=== PATIENT | male | born 1980 | race Caucasian/White ===

== ENCOUNTER 2021-09-16 23:04 | Emergency (ER) | payer SELFPAY ==
--- OUTSIDE RECORDS SUMMARY | 2021-09-16 23:07 | XMS REPORT | Continuity of Care Document ---
:1980 Author Organization [facility] t Address [address] [place] [address] Care Team Providers Name Role Phone Asked, Pcp Primary Care Physician Unavailable Cathi FRIAS Attending Clinician CATHI Attending Clinician Unavailable Avery FRIAS Attending Clinician Robin FRIAS Attending Clinician Payers Payer Name Policy Type Policy Number Effective Date Expiration Date S ource Problems Condition Condition Condition Status Onset Resolution Last Treating Co mments Source Name Details Category Date Date Treatment Clinician Date No known No known Disease Unive rs active active ity of problems problems [facility] Allergies, Adverse Reactions, Alerts Allergy Allergy Status Severity Reaction(s) Onset Inactive Treating Comm ents Source Name Type Date Date Clinician Penicill DA Active SV 2017[facility]06 [facility] [place] Penicill Propensi Active Shortness Of 2017-06 Methodi ins ty to Breath 0-14 st adverse 00:00: Hospita reaction 00 l s to drug PENICILL Drug Active Anaphylaxis Uni vers INS Class 1-16 ity of 00:00: [place] 00 Medical [place] Penicill Propensi Active Anaphylaxis U nivers ins ty to 1-16 ity of adverse 00:00: [place] reaction 00 Medical s Branch Penicill DA Active SV [facility] Social History Social Habit Start Date Stop Date Quantity Comments Source Exposure to Not sure [facility] SARS-CoV-2 [place] [facility] (event) Branch History of Snuff User Druze tobacco use Hospital History SDOH [facility] Alcohol Frequency Hospita l History SDOH [facility] Alcohol Std Hospital Drinks History SDOH [facility] Alcohol Binge Hospital Alcohol intake 2019-08-16 2019-08-16 Current drinker [facility] dist 00:00:00 00:00:00 of alcohol Hospital (finding) Alcohol Comment 2019-08-16 2019-08-16 sparingly Druze 00:00:00 00:00:00 Hospital Tobacco use and 2018-03-23 2018-03-23 User of smokeless [facility] exposure 00:00:00 00:00:00 tobacco Hospital Sex Assigned At [birth year] Dru[facility] 00:00:00 00:00:00 Hospital Smoking Status Start Date Stop Date Source Never smoker [facility] Branch Ex-smoker 2018-03-23 00:00:00 2018-03-23 [facility]00:[facility] Medications Ordered Filled Start Stop Current Ordering Indication Dosage Frequency Signature Comments Components Source Medication Medication Date Date Medication? Clinician (SIG) Name Name ibuprofen 2020-0 2020- No 800mg 800 mg, Uni vers (IBU) 12-28 Oral, ity of tablet 800 04:45: 04:20 ONCE, 1 Levon as mg 00 :00 dose, [facility] Medical 12/27/20 at Branch 2345, KAYE HYDROcodone 2020-0 2020- No 1{tbl} 1 tablet, Univers -acetaminop 12-28 Oral, ity of hen (NORCO 04:45: 04:20 ONCE, 1 Levon as 5) 5-325 mg 00 :00 dose, [facility] Med ical tablet 1 12/27/20 at [facility] tablet 2345, KAYE ibuprofen 2020-0 Yes [id number] 800mg Take 1 Univers 800 mg 7-20 tablet by ity of tablet 00:00: mouth [place] 00 every 8 Medical (eight) Branch hours as needed for Pain (scale 4-6). benzonatate 2020- Yes [id number] 100mg Take 1 Univers 100 mg 7-20 capsule by ity of capsule 00:00: mouth 3 [place] 00 (three) Medical times Branch daily as needed for Cough. levoFLOXaci 2020- No [id number] 750mg Take 1 Univers n 7-20 07-26 tablet by ity of (LEVAQUIN) 00:00: 04:59 mouth [place] 750 mg 00 :00 every 24 Medical tablet (twenty-fo Branch ur) hours for 5 days. No known No No known Metho di medications 3-[address] 19:43: s Hospita 35 l azithromyci 2018-06 Yes [id number] 250mg Take 1 Univers n 1-03 tablet by ity of (ZITHROMAX 00:00: mouth [place] Z-KENIA) 250 00 daily. Medical mg tablet Take 500 Branch mg day 1, then 250 mg days 2 to 5. azithromyci 2018-06- No [id number] 250mg Take 1 Univers n 1-03 -20 tablet by ity of (ZITHROMAX 00:00: 00:00 mouth [place] Z-KENIA) 250 00 :00 daily. Medical mg tablet Take 500 Branch mg day 1, then 250 mg days 2 to 5. erythromyci Yes .5[in_u Place 0.5 Univers n 5 mg/gram 1-16 s] Inches in ity of (0.5 %) 00:00: both eyes [place] ophthalmic 00 4 (four) Medic al ointment times Branch daily. traMADOL 50 Yes 50mg Take 1 Univ ers mg tablet 1-16 tablet by ity o f 00:00: mouth [place] 00 every 6 Medical (six) Branch hours as needed for Pain (scale 4-6). erythromyci 2020- No .5[in_u Place 0.5 Univers n 5 mg/gram 1-16 07-20 s] Inches in it y of (0.5 %) 00:00: 00:00 [place] ophthalmic 00 :00 4 (four) Medic al ointment times Branch daily. traMADOL 50 2020- No 50mg Take 1 Uni vers mg tablet 1-16 07-20 tablet by ity of 00:00: 00:00 mouth [place] 00 :00 every 6 Medical (six) Branch hours as needed for Pain (scale 4-6). Immunizations Ordered Immunization Filled Immunization Date Status Commen ts Source Name Name Tdap 2018-12-24 Completed [facility] 00:00:00 Hospital Vital Signs Vital Name Observation Time Observation Value Comments Source Systolic blood 2020-12-28 06:05:00 155 mm[Hg] Univer sity of pressure [facility] Diastolic blood 2020-12-28 06:05:00 93 mm[Hg] Unive rsity of [facility] Heart rate 2020-12-28 06:05:00 89 /min [facility] Body temperature 2020-12-28 06:05:[address] [facility] Respiratory rate 2020-12-28 06:05:00 18 /min [facility] Oxygen saturation in 2020-12-28 06:05:00 96 /min [facility] Arterial blood by [facility] Pulse oximetry Branch Body height 2020-12-28 04:06:00 172.7 cm [facility] Body weight 2020-12-28 03:36:00 140.615 kg [facility] BMI 2020-12-28 03:36:00 47.14 kg/m2 [facility] Systolic blood 2020-11-16 01:49:00 170 mm[Hg] Method [facility] pressure Diastolic blood 2020-11-16 01:49:00 102 mm[Hg] [facility] pressure Heart rate 2020-11-16 01:49:00 96 /min [facility] Body temperature 2020-11-16 01:49:00 36.39 [place] [facility] Respiratory rate 2020-11-16 01:49:00 19 /min [facility] Body height 2020-11-16 01:49:00 180.3 cm [facility] Body weight 2020-11-16 01:49:00 145.151 kg [facility] BMI 2020-11-16 01:49:00 44.63 kg/m2 [facility] Oxygen saturation in 2020-11-16 01:49:00 96 /min [facility] Arterial blood by Pulse oximetry Procedures Procedure Date / Time Performing Clinician Source Performed COVID-19 (ID NOW RAPID 2020-12-28 04:20:00 Arnaldo Winkler [facility] CT LUMBAR SPINE WO 2020-12-28 04:00:05 Arnaldo Winkler [facility] Branch XR CHEST 2 VW 2020-12-28 03:53:35 Arnaldo Winkler [facility] CONSENT/REFUSAL FOR 2020-12-28 02:16:39 Doctor Unassigned, No Un [facility] DIAGNOSIS AND TREATMENT Name Medical Branch CT ABDOMEN PELVIS WO 2020-11-16 03:25:55 Iain Varela [facility] CONTRAST HC COMPLETE BLD COUNT 2020-11-16 02:43:00 [facility] W/AUTO DIFF PROTHROMBIN TIME WITH 2020-11-16 02:43:00 Avery [facility] INR COMPREHENSIVE METABOLIC 2020-11-16 02:43:00 Iain Varela [facility] PANEL LIPASE LEVEL 2020-11-16 02:43:00 Iain Varela spital ESTIMATED GFR 2020-11-16 02:43:00 Iain Varela spital Plan of Care Planned Activity Planned Date Details Comments Source Future Scheduled 2021-04-12 COVID-19 VACCINE [facility] Test 19:44:36 (1) [code = COVID-19 VACCINE (1)] Future Scheduled 2021-04-12 Hepatitis C [facility] ospital Test 19:44:36 screening (procedure) [code = 820778993] Future Scheduled 2021-04-12 INFLUENZA VACCINE [facility] Test 19:44:36 [code = INFLUENZA VACCINE] Encounters Start End Encounter Admission Attending Care Care Encounter Source Date/Time Date/Time Type Type Clinicians Facility Department ID 2020-12-27 2020-12-28 Emergency [facility] [id number] Univers 23:16:00 01:08:00 Arnaldo [facility] [id number] it y of Clear [id number] Cha schmidt Yu [phone] [address] ([facility]) 2020-12-27 2020-12-27 Emergency X [facility] ERT [id number] Univers 23:16:00 23:16:00 ARNALDO [facility] 2020-11-152020-11-15 Emergency Avery, 1.2.840.1 [id number] Methodi 20:51:00 23:15:[address] 3.430.2.7 Hospit a .3.694710 l .8 2020-11-15 2020-11-15 Travel 1.2.840.1 [id number] Methodi 00:00:00 00:00:[address] 3.430.2.7 0.2.7.3.698 Ho spita .3.333631 084.8 l .8 2019-09-29 2019-09-29 [facility] [id number] Univers 09:01:41 09:21:41 ne Visit [facility] [id number] [facility] 4.2.7.2.686 [place] [facility] [phone] [place] dical nal 059 [facility] Results Test Description Test Time Test Comments Results Result Comments Source COVID-19 (ID NOW RAPID TESTING) 2020-12-28 04:36:39 Test Item Value Reference Range Interpretation Comme nts SARS-CoV-2 Rapid ID NOW (test code Positive Not Detected A = 06643-9) DOMINIC (test code = DOMINIC) ID NOW COVID-19 Assay is an isothermal nucleic acid amplification test intended for the qualitative detection of nucleic acid from SARS-CoV-2 viral RNA in nasopharyngeal (DIETETICS DIRECTOR) specimens. It is used under Emergency Use Authorization (EUA) by FDA. The limit of detection (LOD) of the assay is 125 Genome Equivalents/mL. A positive result is indicative of the presence of SARS-CoV-2 RNA. ?Clinical correlation with patient history and other diagnostic information is necessary to determine patient infection status. A negative (Not Detected) result does not preclude SARS-CoV-2 infection. In patients with clinical symptoms and other tests that are consistent with SARS-CoV-2 infection, negative results should be treated as presumptive negative and a new specimen should be tested with alternative PCR molecular test. Invalid: Please collect a new specimen for repeat patient testing if clinically indicated. Lab Interpretation (test code = Abnormal 64136-1) [facility] [id number] 04:26:56 No acute osseous abnormality of the lumbar spine. Suboptimal evaluation of the soft tissues due to body habitus. There isapparent moderate central canal stenosis and bilateral mild neuralforaminal stenosis at L3-L4. Patchy groundglass attenuation in the visualized left lower lobe,concerning for pneumo martha versus aspiration. RL: 460 AFC: [id number] Ordering physician: ARNALDO WINKLER INDICATION: Low back pain COMPARISON: None TECHNIQUE: Axial images of the lumbar spine were performed without theadministration of intravenous contrast material. Images were reformatted inthe coronal and sagittal plane. CT scan was performed accordingto ALARA(as low as reasonably achievable) policy. FINDINGS: There is patchy groundglass attenuation in the left lower lobe.The lumbar spine is in normal anatomic alignment. There is preservation ofnormal vertebral body height, without evidence for acute fracture.Evaluation of the soft tissues is limited by body habitus. There aremultilevel degenerative changes, with moderate central canal stenosis andbilateral mild neural foraminal stenosis at L3-L4. [facility], Radiant Results Inft User - 12/27/2020 11:28 PM CDT Ordering physician: ARNALDO DIETRICHDICATION: Low back painCOMPARISON: NoneTECHNIQUE: Axial images of the lumbar spine were performed without theadministration of intravenous contrast material. Images were reformatted inthe coronal and sagittal plane. CT scan was performed according to ALARA(as low as reasonably achievable) policy.FINDINGS: There is patchy groundglass attenuation in the left lower lobe.The lumbar spine is in normal anatomic alignment. There is preservation ofnormal vertebral body height, without evidence for acute fracture.Evaluation of the soft tissues is limited by body habitus. There aremultilevel degenerative changes, with moderate central canal stenosis andbilateral mild neural foraminal stenosis at L3-L4.IMPRESSIONNo acute osseous abnormality of the lumbar spine.Suboptimal evaluation of the soft tissues due to body habitus. There isapparent moderate central canal stenosis and bilateral mild neuralforaminal stenosis at L3-L4.Patchy groundglass attenuation in the visualized left lower lobe,concerning forpneumonia versus aspiration.RL: 460AFC: [id number] signed by Meme Fajardo MD, PhD at 12/27/2020 11:26 PMUnBaylor Scott [facility] SunnyvaleXR CHEST 2 [id number] 04:20:33Impression: Moderate cardiomegaly. Thickening of the ochoa of the central airways, possibly reflectinginfectious or inflammatory bronchitis. RL: 460 AFC: [id number] Ordering physician: ARNALDO WINKLER Indication: Cough Comparison: None Findings: PA and lateral views of the chest. The cardiopericardialsilhouette is moderately enlarged. There is thickening of the ochoa of thecentral airways. The visualized bony thorax is intact. [facility], Radiant Results Inft User - 12/27/2020 11:21 PM CDTFormatting of this note might be different fromthe original.Ordering physician: ARNALDO Dietrichdication: CoughComparison: NoneFindings: PA and la teral views of the chest. The cardiopericardialsilhouette is moderately enlarged. There is thickening of the ochoa of thecentral airways. The visualized bony thorax is intact.IMPRESSIONImpression:Moderate cardiomegaly.Thickening of the ochoa of the central airways, possibly reflectinginfectious or inflammatory bronchitis.RL: 460AFC: [id number] signed by Meme Fajardo MD, PhD at 12/27/2020 11:20 PMUnBaylor Scott & White Medical Center – Sunnyvale
--- NOTE | 2021-09-17 00:35 | ER ---
Nurse's Notes [facility] Name: Hemanth Cooper Age: 41 yrs Sex: Male : 1980 Arrival Date: 09/16/2021 Time: 23:09 Bed 19 Private MD: Diagnosis: Sprain of unspecified ligament of right ankle;Contusion of right lower leg Presentation: 09/17 00:08 Chief complaint: Patient states: While attempting to unload vehicle from flatbed of lp1 truck, patient's right leg caught in between back tire of vehicle and side of truck bed; Pain to right ankle and lower leg. Coronavirus screen: At this time, the client does not indicate any symptoms associated with coronavirus-19. Ebola Screen: No symptoms or risks identified at this time. Initial Sepsis Screen: Does the patient meet any 2 criteria? No. Patient's initial sepsis screen is negative. Does the patient have a suspected source of infection? No. Patient's initial sepsis screen is negative. Risk Assessment: Do you want to hurt yourself or someone else? Patient reports no desire to harm self or others. Onset of symptoms was September 17, 2021. 00:08 Method Of Arrival: Ambulatory lp1 00:08 Acuity: WATSON 4 lp1 Triage Assessment: 01:39 General: Appears in no apparent distress. Behavior is calm, cooperative, appropriate kd3 for age. Pain: Complains of pain in lateral aspect of left calf and left lateral ankle. Musculoskeletal: Swelling present in lateral aspect of left calf and left lateral ankle. Injury Description: Bruise sustained to lateral aspect of left calf. Historical: - Allergies: 00:11 PENICILLINS; lp1 - Home Meds: 00:11 None [Active]; lp1 - PMHx: 00:11 None; lp1 - PSHx: 00:11 None; lp1 - Immunization history:: Adult Immunizations up to date. - Social history:: Smoking status: Patient reports use of chewing tobacco. Screenin:38 Abuse screen: Denies threats or abuse. Denies injuries from another. Nutritional kd3 screening: No deficits noted. Tuberculosis screening: No symptoms or risk factors identified. Fall Risk None identified. Assessment: 01:40 Reassessment: Patient and/or family updated on plan of care and expected duration. Pain kd3 level reassessed. Patient is alert, oriented x 3, equal unlabored respirations, skin warm/dry/pink. Patient states feeling better. Vital Signs: 00:08 BP 157 / 90; Pulse 105; Resp 20; Temp 98.8(TE); Pulse Ox 98% on R/A; Weight 163.29 kg lp1 (R); Height 5 ft. 11 in. (180.34 cm); Pain 10/; 01:41 BP 142 / 82; Pulse 100; Resp 17; Pulse Ox 98% on R/A; kd3 00:08 Body Mass Index 50.21 (163.29 kg, 180.34 cm) lp1 ED Course: 09/16 23:09 Patient arrived in ED. kz 23:19 Da Man NP is PHCP. pm1 23:19 Humberto Mccurdy DO is Attending Physician. pm1 04/ 00:11 Triage completed. lp1 00:11 Arm band placed on left wrist. lp1 00:22 Tib Fib Right XRAY In Process Unspecified. EDMS 00:22 Ankle Right 3 View XRAY In Process Unspecified. EDMS 00:32 Nichole Barajas, GADIEL is Primary Nurse. kd3 01:39 splint. Patient did not have IV access during this emergency room visit. kd3 01:40 Patient has correct armband on for positive identification. Bed in low position. Call kd3 light in reach. Administered Medications: 00:42 Drug: [place] (HYDROcodone-acetaminophen) 10 mg-325 mg 1 tabs Route: PO; ag7 01:26 Follow up: Response: No adverse reaction; Pain is decreased kd3 01:40 Follow up: Response: No adverse reaction kd3 Outcome: 00:34 Discharge ordered by MD. pm1 01:40 Discharged to home ambulatory. kd3 01:40 Condition: stable 01:40 Discharge instructions given to patient, family, Instructed on discharge instructions, follow up and referral plans. Demonstrated understanding of instructions, follow-up care, medications, Prescriptions given X 1. 01:41 Patient left the ED. kd3 Signatures: Dispatcher [employer] EDMS Bryanna Lundy RN RN lp1 Da Man NP SANDING SUPERVISOR pm1 Nichole Barajas RN RN kd3 Silvia Wu Angela, RN RN ag7 Corrections: (The following items were deleted from the chart) 00:12 00:08 BP 157 / 90; Pulse 105bpm; Resp 20bpm; Pulse Ox 98% RA; 163.29 kg Reported; lp1 Height 5 ft. 11 in.; BMI: 50.2; Pain 10/10; lp1
--- NOTE | 2021-09-17 00:36 | EDPHYS ---
Physician Documentation [facility] Name: Hemanth Cooper Age: 41 yrs Sex: Male : 1980 Arrival Date: 09/16/2021 Time: 23:09 Bed 19 Private MD: ED Physician Humberto Mccurdy HPI: 09/16 23:26 This 41 yrs old Male presents to ER via Ambulatory with complaints of Right ankle and pm1 right lower leg pain. 23:26 The patient presents with pain, that is acute. The complaints affect the right ankle pm1 and right tapia. Context: The problem was sustained outdoors, resulted from Patient tripped while working on his bed of toe truck, right leg got caught on stationary vehicle as he fell down on the ground. Patient landed on his back, no head injury, headache, neck pain, LOC, the patient can partially bear weight, the patient is able to ambulate, Problem is a result from a previous injury: Yes. Bilateral ankle sprain many years ago. Onset: The symptoms/episode began/occurred today. Modifying factors: The symptoms are alleviated by elevating leg, the symptoms are aggravated by weight bearing. Associated signs and symptoms: Pertinent positives: swelling, Pertinent negatives calf tenderness, numbness, tingling. Treatment prior to arrival includes: no previous treatment. Severity of symptoms: in the emergency department the symptoms are unchanged. The patient has not experienced similar symptoms in the past. The patient has not recently seen a physician. Historical: - Allergies: 09/17 00:11 PENICILLINS; lp1 - Home Meds: 00:11 None [Active]; lp1 - PMHx: 00:11 None; lp1 - PSHx: 00:11 None; lp1 - Immunization history:: Adult Immunizations up to date. - Social history:: Smoking status: Patient reports use of chewing tobacco. ROS: 09/16 23:26 Constitutional: Negative for fever, chills, and weight loss, Neck: Negative for injury, pm1 pain, and swelling, Cardiovascular: Negative for chest pain, palpitations, and edema, Respiratory: Negative for shortness of breath, cough, wheezing, and pleuritic chest pain, Abdomen/GI: Negative for abdominal pain, nausea, vomiting, diarrhea, and constipation, Back: Negative for injury and pain. Skin: Negative for injury, rash, and discoloration, Neuro: Negative for headache, weakness, numbness, tingling, and seizure. MS/extremity: Positive for contusion, of the right tapia, Swelling and pain to lateral right ankle, Negative for decreased range of motion, deformity. All other systems are negative. Exam: 23:26 Constitutional: This is a well developed, well nourished patient who is awake, alert, pm1 and in no acute distress. Head/Face: Normocephalic, atraumatic. 23:26 Back: No spinal tenderness. No costovertebral tenderness. Full range of motion. Skin: Warm, dry with normal turgor. Normal color with no rashes, no lesions, and no evidence of cellulitis. 23:26 Neck: Exam negative for acute changes, External neck: is normal, C-spine: appears grossly normal, vertebral tenderness, is not appreciated. 23:26 Chest/axilla: Exam negative for acute changes, Inspection: normal, Palpation: is normal. 23:26 Cardiovascular: Exam negative for acute changes, Rate: normal, Rhythm: regular, Pulses: no pulse deficits are appreciated. 23:26 Respiratory: Exam negative for acute changes, respiratory distress, shortness of breath. 23:26 Abdomen/GI: Exam negative for acute changes, Inspection: abdomen appears normal, Palpation: abdomen is soft and non-tender, in all quadrants. 23:26 Musculoskeletal/extremity: Extremities: grossly normal except: noted in the right tapia: contusion, There is no evidence of abrasion, decreased ROM, deformity, noted in the Right lateral ankle: swelling, tenderness, no evidence of decreased ROM, deformity. 23:26 Neuro: Exam negative for acute changes, Orientation: is normal, Mentation: is normal, Motor: is normal, moves all fours. Vital Signs: 09/17 00:08 BP 157 / 90; Pulse 105; Resp 20; Temp 98.8(TE); Pulse Ox 98% on R/A; Weight 163.29 kg lp1 (R); Height 5 ft. 11 in. (180.34 cm); Pain 03/19; 01:41 BP 142 / 82; Pulse 100; Resp 17; Pulse Ox 98% on R/A; kd3 00:08 Body Mass Index 50.21 (163.29 kg, 180.34 cm) lp1 Procedures: 01:16 Splinting: Splint applied to left ankle using Orthoglass splint, applied by myself. pm1 tech. Examined by me, post splint application: neurovascular intact, 2+ distal pulses palpable, brisk capillary refill noted, Patient tolerated well. MDM: 09/16 23:26 Patient medically screened. pm1 09/17 00:33 Data reviewed: vital signs. Data interpreted: Pulse oximetry: on room air is 98 %. pm1 Interpretation: normal. Counseling: I had a detailed discussion with the patient and/or guardian regarding: the historical points, exam findings, and any diagnostic results supporting the discharge/admit diagnosis, radiology results, the need for outpatient follow up, to return to the emergency department if symptoms worsen or persist or if there are any questions or concerns that arise at home. 00:34 ED course: patient refused crutches because he has a pair at home. pm1 09/16 23:25 Order name: Tib Fib Right XRAY pm1 09/16 23:25 Order name: Ankle Right 3 View XRAY pm1 09/16 23:26 Order name: Ice pack; Complete Time: 01:25 pm1 04 00:35 Order name: Splint - Ankle: Orthoglass: Stirrup; Complete Time: 01:25 pm1 Administered Medications: 00:42 Drug: Victor (HYDROcodone-acetaminophen) 10 mg-325 mg 1 tabs Route: PO; ag7 01:26 Follow up: Response: No adverse reaction; Pain is decreased kd3 01:40 Follow up: Response: No adverse reaction kd3 Disposition: 06:08 Co-signature as Attending Physician, Humberto Mccurdy DO I was immediately available on-site ms3 in the Emergency Department for consultation in the care of the patient.. Disposition Summary: 09/17/21 00:34 Discharge Ordered Location: Home pm1 Problem: new pm1 Symptoms: have improved pm1 Condition: Stable pm1 Diagnosis - Sprain of unspecified ligament of right ankle pm1 - Contusion of right lower leg pm1 Followup: pm1 - With: Emergency Department - When: As needed - Reason: Worsening of condition Followup: pm1 - With: Private Physician - When: 2 - 3 days - Reason: Recheck today's complaints, Continuance of care, Re-evaluation by your physician Discharge Instructions: - Discharge Summary Sheet pm1 - Ankle Sprain pm1 - Cast or Splint Care, Adult pm1 - Crutch Use, Adult pm1 Forms: - Medication Reconciliation Form pm1 - Thank You Letter pm1 - Antibiotic Education pm1 - Prescription Opioid Use pm1 - Work release form pm1 Prescriptions: - Tylenol-Codeine #3 300 mg-30 mg Oral - take 2 tablet by ORAL route every 6 hours As needed; 20 tablet; Refills: 0, pm1 Product Selection Permitted Signatures: Dispatcher [employer] EDMS Bryanna Lundy RN RN lp1 Da Man, HYDROLOGY PROFESSOR HYDROLOGY PROFESSOR pm1 Humberto Mccurdy DO DO ms3 Naty Dougherty RN RN ag7 Nichole Barajas RN kd3
[2021-09-17] MEDS ORDERED: HYDROCODONE/APAP 10/325 TAB ONE (00:41)
[2021-09-17 06:42] VITALS: TEMP 98.8; O2SAT 98
[2021-09-17 06:43] VITALS: BP 142/82
--- NOTE | 2021-09-18 14:40 | RAD REPORT ---
EXAM DESCRIPTION: RAD - Ankle Right 3 View - 09/17/2021 12:20 am CLINICAL HISTORY: 41 years Male, Pain; Swelling COMPARISON: None. FINDINGS/IMPRESSION: 1. No acute fracture or dislocation. 2. Small plantar calcaneal enthesopathy. 3. Soft tissues are unremarkable. Electronically signed by: Anthony Ruth MD 09/17/2021 12:31 AM CDT Due to temporary technical issues with the PACS/Fluency reporting system, reports are being signed by the in house radiologist without review as a courtesy to ensure prompt reporting. The interpreting r adiologist is fully responsible for the content of the report.
--- NOTE | 2021-09-18 14:41 | RAD REPORT ---
EXAM DESCRIPTION: RAD - Tib Fib Right - 09/17/2021 12:20 am CLINICAL HISTORY: 41 years Male, Pain; Swelling COMPARISON: None. FINDINGS/IMPRESSION: 1. No acute fracture or dislocation. 2. Small plantar calcaneal enthesopathy. 3. Soft tissues are unremarkable. Electronically signed by: Anthony Ruth MD 09/17/2021 12:31 AM CDT Due to temporary technical issues with the PACS/Fluency reporting system, reports are being signed by the in house radiologist without review as a courtesy to ensure prompt reporting. The interpreting r adiologist is fully responsible for the content of the report.
== END 2021-09-17 01:41 | disposition home or self-care (01) ==
LOC: ER 23:04
PROC: 2W3QX1Z Immobilization of Right Lower Leg using Splint (ICD-10-PCS; principal; 2021-09-17)
DX: S93.401A Sprain of unspecified ligament of right ankle, initial encounter (principal); S80.11XA Contusion of right lower leg, initial encounter; W01.0XXA Fall on same level from slipping, tripping and stumbling without subsequent striking against object, initial encounter; Z88.0 Allergy status to penicillin; F17.220 Nicotine dependence, chewing tobacco, uncomplicated
CPT/HCPCS: 99283

== ENCOUNTER 2021-11-29 21:48 | Emergency (ER) | payer SELFPAY ==
--- OUTSIDE RECORDS SUMMARY | 2021-11-29 21:51 | XMS REPORT | Continuity of Care Document ---
:1980 Author Organization [facility] t Address [address] [place] [address] Care Team Providers Name Role Phone Asked, Pcp Primary Care Physician Unavailable Cathi FRIAS Attending Clinician CATHI Attending Clinician Unavailable Avery FRIAS Attending Clinician Robin FRIAS Attending Clinician PIPPA Attending Clinician Unavailable CARLENE Attending Clinician Unavailable Payers Payer Name Policy Type Policy Number Effective Date Expiration Date S ource Problems Condition Condition Condition Status Onset Resolution Last Treating Co mments Source Name Details Category Date Date Treatment Clinician Date No known No known Disease Unive rs active active ity of problems problems [facility] Allergies, Adverse Reactions, Alerts Allergy Allergy Status Severity Reaction(s) Onset Inactive Treating Comm ents Source Name Type Date Date Clinician Penicill DA Active SV 2017-06 [facility] [place] Penicill Propensi Active Shortness Of 2017-06 Methodi ins ty to [facility] 0-14 st adverse 00:00: Hospita reaction 00 l s to drug PENICILL Drug Active Anaphylaxis Uni vers INS Class 1-16 ity of 00:00: [place] 00 [facility] Branch Penicill Propensi Active Anaphylaxis U nivers ins ty to 1-16 ity of adverse 00:00: [place] reaction 00 Medical s Branch Penicill DA Active SV [facility] ins 9-20 [place] [facility] e [facility] Social History Social Habit Start Date Stop Date Quantity Comments Source Exposure to Not sure [facility] SARS-CoV-2 [place] [facility] (event) Branch History of Snuff User [facility] tobacco use Hospital History SDOH [facility] Alcohol Frequency Hospita l History SDOH [facility] Alcohol Std Hospital Drinks History SDOH [facility] Alcohol Binge Hospital Alcohol intake 2019-08-16 2019-08-16 Current drinker [facility] 00:00:00 00:00:00 of alcohol Hospital (finding) Alcohol Comment 2019-08-16 2019-08-16 sparingly [facility] 00:00:00 00:00:00 Hospital Tobacco use and 2018-03-23 2018-03-23 User of smokeless [facility] exposure 00:00:00 00:00:00 tobacco Hospital Sex Assigned At [birth year] [facility] 00:00:00 00:00:00 Hospital Smoking Status Start Date Stop Date Source Never smoker [facility] Branch Ex-smoker 2018-03-23 00:00:00 2018-03-23 00:00:00 [facility] Medications Ordered Filled Start Stop Current Ordering Indication Dosage Frequency Signature Comments Components Source Medication Medication Date Date Medication? Clinician (SIG) Name Name ibuprofen 2020-0 2020- No 800mg 800 mg, Uni vers (IBU) 12-28 Oral, ity of tablet 800 04:45: 04:20 ONCE, 1 Levon as mg 00 :00 dose, [facility] 12/27/20 at Branch 2345, KAYE HYDROcodone 2020-0 2020- No 1{tbl} 1 tablet, Univers -acetaminop 12-28 Oral, ity of hen (NORCO 04:45: 04:20 ONCE, 1 Levon as 5) 5-325 mg 00 :00 dose, [facility] ical tablet 1 12/27/20 at [facility] tablet 2345, KAYE ibuprofen 2020-0 Yes [id number] 800mg Take 1 Univers 800 mg 7-20 tablet by ity of tablet 00:00: mouth [place] 00 every 8 Medical (eight) Branch hours as needed for Pain (scale 4-6). benzonatate 2020- Yes [id number] 100mg Take 1 Univers 100 mg 7-20 capsule by ity of capsule 00:00: mouth 3 [place] 00 (three) Medical times Branch daily as needed for Cough. levoFLOXaci 2020- No [id number] 750mg Take 1 Univers n 7-20 07-26 tablet by ity of (LEVAQUIN) 00:00: 04:59 mouth [place] 750 mg 00 :00 every 24 Medical tablet (twenty-fo Branch ur) hours for 5 days. No known No No known Metho di medications 3-[address] 19:43: s Hospita 35 l azithromyci 2018-06 Yes [id number] 250mg Take 1 Univers n 1-03 tablet by ity of (ZITHROMAX 00:00: mouth [place] Z-KENIA) 250 00 daily. Medical mg tablet Take 500 Branch mg day 1, then 250 mg days 2 to 5. azithromyci 2018-06- No [id number] 250mg Take 1 Univers n 1-03 07-20 tablet by ity of (ZITHROMAX 00:00: 00:00 [...] ts Source Name Name Tdap 2018-12-24 Completed [facility] 00:00:00 Hospital Vital Signs Vital Name Observation Time Observation Value Comments Source Heart rate 2020-12-28 06:05:00 89 /min [facility] Body temperature 2020-12-28 06:05:00 37 [facility] Respiratory rate 2020-12-28 06:05:00 18 /min [facility] Oxygen saturation in 2020-12-28 06:05:00 96 /min University Arterial blood by [facility] Pulse oximetry Branch Systolic blood 2020-12-28 06:05:00 155 mm[Hg] Univer sity [facility] Diastolic blood 2020-12-28 06:05:00 93 mm[Hg] [facility] 2020-12-28 04:06:00 172.7 cm [facility] Body weight 2020-12-28 03:36:00 140.615 kg [facility] BMI 2020-12-28 03:36:00 47.14 kg/m2 [facility] Systolic blood 2020-11-16 01:49:00 170 mm[Hg] Method [facility] pressure Diastolic blood 2020-11-16 01:49:00 102 mm[Hg] [facility] pressure Heart rate 2020-11-16 01:49:00 96 /min [facility] [place] Body temperature 2020-11-16 01:49:00 36.39 [facility] Respiratory rate 2020-11-16 01:49:00 19 /min [facility] Body height 2020-11-16 01:49:00 180.3 cm [facility] [place] Body weight 2020-11-16 01:49:00 145.151 kg [facility] [place] BMI 2020-11-16 01:49:00 44.63 kg/m2 [facility] [place] Oxygen saturation in 2020-11-16 01:49:00 96 /min [facility] [place] [facility] Arterial blood by Pulse oximetry Procedures Procedure Date / Time Performing Clinician Source Performed COVID-19 (ID NOW RAPID 2020-12-28 04:20:00 Arnaldo Winkler [facility] CT LUMBAR SPINE WO 2020-12-28 04:00:05 Arnaldo Winkler [facility] Branch XR CHEST 2 VW 2020-12-28 03:53:35 Arnaldo Winkler [facility] CONSENT/REFUSAL FOR 2020-12-28 02:16:39 Doctor Unassigned, No Un [facility] DIAGNOSIS AND TREATMENT Name Medical Branch CT ABDOMEN PELVIS WO 2020-11-16 03:25:55 Iain Varela [facility] CONTRAST HC COMPLETE BLD COUNT 2020-11-16 02:43:00 [facility] PROTHROMBIN TIME WITH 2020-11-16 02:43:00 [facility] COMPREHENSIVE METABOLIC 2020-11-16 02:43:00 Iain Varela [facility] PANEL LIPASE LEVEL 2020-11-16 02:43:00 Iain Varela spital ESTIMATED GFR 2020-11-16 02:43:00 Iain Varela spital Plan of Care Planned Activity Planned Date Details Comments Source Future Scheduled 2021-04-12 COVID-19 VACCINE [facility] Test 19:44:36 (1) [code = COVID-19 VACCINE (1)] Future Scheduled 2021-04-12 Hepatitis C [facility] ospital Test 19:44:36 screening (procedure) [code = 576462336] Future Scheduled 2021-04-12 INFLUENZA VACCINE [facility] Test 19:44:36 [code = INFLUENZA VACCINE] Encounters Start End Encounter Admission Attending Care Care Encounter Source Date/Time Date/Time Type Type Clinicians Facility Department ID 2020-12-27 2020-12-28 Emergency [facility] [id number] Univers 23:16:00 01:08:00 Arnaldo Adena [facility] [id number] it y of Clear [id number] Cha schmidt Yu [id number] [address] ([facility]) 2020-12-27 2020-12-27 Emergency X [facility] ERT [id number] Univers 23:16:00 23:16:00 ARNALDO [facility] 2020-11-15 2020-11-15 Emergency [place], [id number] Methodi 20:51:00 23:15:[address] 3.430.2.7 Hospit a .[id number] l .8 2020-11-15 2020-11-15 Travel 1.2.840.1 [id number] Methodi 00:00:00 00:00:[id number] 3.430.2.7 0.2.7.3.698 Ho spita .[id number] 084.8 l .8 2019-09-29 2019-09-[facility] [id number] Univers 09:01:41 09:21:41 ne Visit [facility] [id number] ity [facility] [id number] Cha schmidt Professio [phone] Ct dical nal 059 [facility] 2019-08-16 2019-08-16 Emergency PIPPA, [facility] [id number] [place] 00:00:00 00:00:00 CARRIE [address] 2019-04-01 2019-04-01 Emergency CARLENE, [facility] 064 [id number] 58 [place] 00:00:00 00:00:00 MILLIE [address] Results Test Description Test Time Test Comments Results Result Comments Source COVID-19 (ID NOW RAPID TESTING) 2020-12-28 04:36:39 Test Item Value Reference Range Interpretation Comme nts SARS-CoV-2 Rapid ID NOW (test code Positive Not Detected A = [id number]) DOMINIC (test code = DOMINIC) ID NOW COVID-19 Assay is an isothermal nucleic acid amplification test intended for the qualitative detection of nucleic acid from SARS-CoV-2 viral RNA in nasopharyngeal (SIZING MACHINE TENDER) specimens. It is used under Emergency Use [...] indicated. Lab Interpretation (test code = Abnormal 54887-0) [facility] [id number] 04:26:56 No acute osseous abnormality of the lumbar spine. Suboptimal evaluation of the soft tissues due to body habitus. There isapparent moderate central canal stenosis and bilateral mild neuralforaminal stenosis at L3-L4. Patchy groundglass attenuation in the visualized left lower lobe,concerning for pneumo martha versus aspiration. RL: 460 AFC: [id number] Ordering physician: ARNALDO WINKLER INDICATION: Low back [...] andbilateral mild neural foraminal stenosis at L3-L4. [facility], Radiant Results Inft User - 12/27/2020 11:28 [...] left lower lobe,concerning forpneumonia versus aspiration.RL: 460AFC: [id number] signed by Meme Fajardo MD, PhD at 12/27/2020 11:26 PM[facility] CHEST 2 [id number] 04:20:33Impression: Moderate cardiomegaly. Thickening of the ochoa of the central airways, possibly reflectinginfectious or inflammatory bronchitis. RL: 460 AFC: [id number] Ordering physician: ARNALDO WINKLER Indication: Cough Comparison: [...] airways, possibly reflectinginfectious or inflammatory bronchitis.RL: 460AFC: [id number] signed by Meme Fajardo MD, PhD at 12/27/2020 11:20 PM[facility]
--- NOTE | 2021-11-30 00:29 | ER ---
Nurse's Notes [facility] Name: Hemanth Cooper Age: 41 yrs Sex: Male : 1980 Arrival Date: 11/29/2021 Time: 21:51 Bed 11 Private MD: Diagnosis: Coronavirus infection, unspecified Presentation: 11/29 22:54 Chief complaint: Patient states: he was exposed to Covid several days ago and has bb congestion wants to be tested for Covid. Coronavirus screen: congestion. Ebola Screen: No symptoms or risks identified at this time. Initial Sepsis Screen: Does the patient meet any 2 criteria? Does the patient have a suspected source of infection? No. Patient's initial sepsis screen is negative. Risk Assessment: Do you want to hurt yourself or someone else? Patient reports no desire to harm self or others. Onset of symptoms was November 26, 2021. 22:54 Method Of Arrival: Ambulatory bb 22:54 Acuity: WATSON 4 bb Historical: - Allergies: 22:56 PENICILLINS; bb - Home Meds: 22:56 None [Active]; bb - PMHx: 22:56 Asthma; reaction to J\T\J Covid vaccine with hospitalization; bb - PSHx: 22:56 None; bb - Immunization history:: Client reports receiving the Sergey \T\ Sergey single-dose vaccine. - Social history:: Smoking status: Patient reports use of chewing tobacco. Screenin:57 Abuse screen: Denies threats or abuse. Nutritional screening: No deficits noted. bb Tuberculosis screening: No symptoms or risk factors identified. Fall Risk None identified. Assessment: 22:57 General: Appears in no apparent distress. Behavior is calm, cooperative. Pain: Denies bb pain. Neuro: Level of Consciousness is awake, alert, obeys commands, Oriented to person, place, time, situation. Cardiovascular: Capillary refill < 3 seconds Patient's skin is warm and dry. Respiratory: Respiratory effort is even, unlabored, Breath sounds are clear bilaterally. GI: No signs and/or symptoms were reported involving the gastrointestinal system. Derm: Skin is pink, warm \T\ dry. Musculoskeletal: Circulation, motion, and sensation intact. 11/30 01:02 Reassessment: No changes from previously documented assessment. Patient is alert, bb oriented x 3, equal unlabored respirations, skin warm/dry/pink. pt verbalized understanding of and agrees to plan of care discharge instructions given pt ambulated with steady gait to exit accompanied by family. Vital Signs: 11/29 22:54 BP 146 / 96; Pulse 86; Resp 18 S; Temp 98.6(O); Pulse Ox 98% on R/A; Weight 145.15 kg bb (R); Height 5 ft. 11 in. (180.34 cm) (R); 22:54 Body Mass Index 44.63 (145.15 kg, 180.34 cm) bb ED Course: 21:51 Patient arrived in ED. as 22:56 Triage completed. bb 22:56 Arm band placed on Patient placed in an exam room, on a stretcher. bb 22:57 Patient has correct armband on for positive identification. Call light in reach. Side bb rails up X 1. 23:03 Da Man NP is PHCP. pm1 23:03 Mitch Tejeda MD is Attending Physician. pm1 23:37 Aurelia Hahn RN is Primary Nurse. bb 11/30 01:03 No provider procedures requiring assistance completed. Patient did not have IV access bb during this emergency room visit. Administered Medications: No medications were administered Outcome: 00:29 Discharge ordered by . pm1 01:03 Discharged to home ambulatory, with family. bb 01:03 Condition: stable 01:03 Discharge instructions given to patient, Instructed on discharge instructions, follow up and referral plans. Demonstrated understanding of instructions, follow-up care. 01:03 Patient left the ED. bb Signatures: Sada Boyer as Aurelia Hahn RN RN bb Da Man NP YEAST PUMPER pm1
--- NOTE | 2021-11-30 00:29 | EDPHYS ---
Physician Documentation [facility] Name: Hemanth Cooper Age: 41 yrs Sex: Male : 1980 Arrival Date: 11/29/2021 Time: 21:51 Bed 11 Private MD: ED Physician Mitch Tejeda HPI: 11/30 00:29 This 41 yrs old Male presents to ER via Ambulatory with complaints of r/o covid. pm1 00:29 Patient presenting to the ER with complaints of COVID testing due to his [id number] pm1 testing positive for COVID. Onset: The symptoms/episode began/occurred today. Severity of symptoms: in the emergency department the symptoms are unchanged. The patient has not experienced similar symptoms in the past. The patient has not recently seen a physician. 41-year-old male presenting to the ER with complaints of testing for COVID. Patient has no symptoms or complaints beyond testing. Historical: - Allergies: 11/29 22:56 PENICILLINS; bb - Home Meds: 22:56 None [Active]; bb - PMHx: 22:56 Asthma; reaction to J\\T\\J Covid vaccine with hospitalization; bb - PSHx: 22:56 None; bb - Immunization history:: Client reports receiving the Sergey \\T\\ Sergey single-dose vaccine. - Social history:: Smoking status: Patient reports use of chewing tobacco. ROS: 11/30 00:29 Constitutional: Negative for fever, chills, and weight loss, ENT: Negative for injury, pm1 pain, and discharge, Cardiovascular: Negative for chest pain, palpitations, and edema, Respiratory: Negative for shortness of breath, cough, wheezing, and pleuritic chest pain, Abdomen/GI: Negative for abdominal pain, nausea, vomiting, diarrhea, and constipation, MS/Extremity: Negative for injury and deformity, Skin: Negative for injury, rash, and discoloration, Neuro: Negative for headache, weakness, numbness, tingling, and seizure. All other systems are negative. Exam: 00:29 Constitutional: This is a well developed, well nourished patient who is awake, alert, pm1 and in no acute distress. Head/Face: Normocephalic, atraumatic. 00:29 Skin: Warm, dry with normal turgor. Normal color with no rashes, no lesions, and no evidence of cellulitis. MS/ Extremity: Pulses equal, no cyanosis. Neurovascular intact. Full, normal range of motion. 00:29 ENT: Exam is negative for acute changes, TM's: no acute changes, Mouth: no acute changes, Lips: normal, moist, Oral mucosa: normal, pink and intact, moist. 00:29 Cardiovascular: Exam negative for acute changes. 00:29 Respiratory: Exam negative for acute changes, respiratory distress, shortness of breath. 00:29 Neuro: Exam negative for acute changes, Orientation: is normal, Mentation: is normal, Motor: is normal, moves all fours. Vital Signs: 11/29 22:54 BP 146 / 96; Pulse 86; Resp 18 S; Temp 98.6(O); Pulse Ox 98% on R/A; Weight 145.15 kg bb (R); Height 5 ft. 11 in. (180.34 cm) (R); 22:54 Body Mass Index 44.63 (145.15 kg, 180.34 cm) bb MDM: 23:03 Patient medically screened. pm1 11/30 00:28 Data reviewed: vital signs. Data interpreted: Pulse oximetry: on room air is 98 %. pm1 Interpretation: normal. Counseling: I had a detailed discussion with the patient and/or guardian regarding: the historical points, exam findings, and any diagnostic results supporting the discharge/admit diagnosis, lab results, the need for outpatient follow up, to return to the emergency department if symptoms worsen or persist or if there are any questions or concerns that arise at home. 11/29 23:00 Order name: COVID-19 SARS RT PCR (Document "Date of Onset" if Symptomatic); Complete bb Time: 00:29 Administered Medications: No medications were administered Disposition Summary: 11/30/21 00:29 Discharge Ordered Location: Home pm1 Problem: new pm1 Symptoms: have improved pm1 Condition: Stable pm1 Diagnosis - Coronavirus infection, unspecified pm1 Followup: pm1 - With: Emergency Department - When: As needed - Reason: Worsening of condition Followup: pm1 - With: Private Physician - When: 2 - 3 days - Reason: Recheck today's complaints, Continuance of care, Re-evaluation by your physician Discharge Instructions: - Discharge Summary Sheet pm1 - COVID-19 pm1 - COVID-19 Frequently Asked Questions pm1 - 10 Things You Can Do to Manage Your COVID-19 Symptoms at Home - [facility] pm1 - COVID-19: Quarantine vs. Isolation - [facility] pm1 Forms: - Medication Reconciliation Form pm1 - Thank You Letter pm1 - Antibiotic Education pm1 - Prescription Opioid Use pm1 Signatures: Dispatcher [employer] Aurelia Edmondson RN RN Da Li, SUPERVISOR PLEATING SUPERVISOR PLEATING pm1
[2021-11-30 02:09] VITALS: BP 146/96; TEMP 98.6; O2SAT 98
== END 2021-11-30 01:03 | disposition home or self-care (01) ==
LOC: ER 21:48
DX: U07.1 COVID-19 (principal); F17.220 Nicotine dependence, chewing tobacco, uncomplicated; Z88.0 Allergy status to penicillin
CPT/HCPCS: 99281; U0003